=== PATIENT | female | born 1995 ===

== ENCOUNTER → 2024-02-03 11:41 | Outpatient (CLI) | payer OTHER ==
[2024-02-03 12:21] LABS: HEMATOCRIT 40.5 % (36.0-45.00); HEMOGLOBIN 13.1 g/dL (12.0-15.00); MEAN CELL VOLUME 86.7 fL (80.00-100.00); MEAN CORPUSCULAR HGB CONC 32.2 g/dl (32.0-36.0); PLATELET COUNT 286 K/uL (150-450); RED BLOOD COUNT 4.67 M/uL (4.00-6.00); RED CELL DISTRIBUTION WIDTH 14.4 % (11.5-14.5)
[2024-02-03 13:21] LABS: ALBUMIN 3.9 gm/dL (3.4-5.0); BILIRUBIN TOTAL 0.37 mg/dL (0.3-1.2); CALCIUM 9.4 mg/dL (8.5-10.1); CREATININE SERUM 0.62 mg/dL (0.55-1.02); GFR 113.02; GLOBULINA 3.9 G/DL (2.4-3.5); POTASSIUM 4.24 mEq/L (3.5-5.1); TOTAL PROTEIN 7.8 gm/dL (6.4-8.2)
[2024-02-03 13:48] LABS: FOLIC ACID > 20.00 ng/ml (4.78-20)
[2024-02-03 14:20] LABS: MANUAL PLATELET COUNT 324
[2024-02-03 14:21] LABS: PLATELET ESTIMATE NORMAL (NORMAL)
== END | disposition home or self-care (01) ==
LOC: LAB 11:41
PROVIDERS: ATTEND Internal Medicine Hematology & Oncology
DX: D50.8 Other iron deficiency anemias (principal); N92.0 Excessive and frequent menstruation with regular cycle; R79.9 Abnormal finding of blood chemistry, unspecified; K76.89 Other specified diseases of liver; R74.02 Elevation of levels of lactic acid dehydrogenase [LDH]; I10 Essential (primary) hypertension